=== PATIENT | male | born 1990 | race Caucasian/White ===

== ENCOUNTER 2017-08-09 14:42 | Emergency (ER) | payer BC, SELFPAY ==
[2017-08-09 14:43] VITALS: BP 170/79; PULSE 113; RESP 18; TEMP 37.2; O2SAT 98; BMI 31.2
--- NOTE | 2017-08-09 15:00 | RAD_ITS ---
STUDY: X-RAY - LEFT ANKLE REASON FOR EXAM: Male, 27 years old. Injury playing baseball. Rolled ankle. Pain and bruising. TECHNIQUE: 3 view(s) of the ankle. COMPARISON: None. FINDINGS: Normal visualized distal tibia and fibula. Normal medial and lateral malleoli. Normal tibiotalar articulation and ankle mortise. Normal visualized talus and calcaneus. The visualized subtalar, talonavicular, calcaneocuboid and tarsal articulations are normal. There is diffuse soft tissue swelling most marked laterally. RAD/Ankle min 3 Views IMPRESSION: Soft tissue swelling without visualized fracture or dislocation. Electronically Signed: Luis Be DO at 15:14 EDT Tel [phone], Service support ,
--- NOTE | 2017-08-09 15:04 | ED.DCSUM_ITS ---
- ER Visit Summary Date of Service: 08/09/17 Chief Complaint: [] Left ankle injury playing baseball History of Present Illness: The patient is a 27 M [] old his ankle as he stepped across first base has pain to left ankle no other complaints of the past history no prior injury to that extremity was able to continue playing after the initial injury presents persistent pain Physical Examination: [] His general exams unremarkable see template he has obvious pain and discomfort to the left ankle there is discomfort medially and laterally he has limited dorsi and plantar flexion the foot is nontender there is no instability deformity skin is intact some slight contusion at the tib-fib and knee and hip are unremarkable all skin areas are closed Test Results: [] Emergency Department Course and Treatment: [] X-ray shows nothing acute I did discuss concept of occult injury he has started on Aircast crutches ice elevation Naprosyn for pain and return for change in symptoms Treatment Plan: [] Disposition: [] Impression: [] left Ankle injury This note was generated with [employer] dictation software. It may contain incorrect words, spelling, and punctuation that were not noted in review of the chart prior to signing ED Disposition - Plan for ED Patient: Chief Complaint: Lower Extremity Injury Referrals: NOT,DEFINED [Primary Care Provider] -
--- NOTE | 2017-08-09 15:22 | ED.DEP ---
ED Disposition - Plan for ED Patient: Chief Complaint: Lower Extremity Injury Instructions: ED Sprain Ankle W X Ray Prescriptions: Naproxen [Naprosyn] 500 mg PO BID PRN #20 tab Referrals: NOT,DEFINED [Primary Care Provider] - Brooks Cortez MD [STAFF PHYSICIAN] -
[2017-08-09 15:26] VITALS: PULSE 76; RESP 16
== END 2017-08-09 15:43 | disposition home or self-care (01) ==
LOC: ED 15:28
PROVIDERS: Emergency Provider Emergency Medicine
DX: S99.912A Unspecified injury of left ankle, initial encounter (principal); S80.12XA Contusion of left lower leg, initial encounter; X58.XXXA Exposure to other specified factors, initial encounter; Y93.64 Activity, baseball; Y92.9 Unspecified place or not applicable
CPT/HCPCS: 73610; 99283